=== PATIENT | female | born 1955 | race Caucasian/White ===

== ENCOUNTER 2018-10-12 11:22 | Emergency (ER) | payer OTHER ==
--- OUTSIDE RECORDS SUMMARY | 2018-10-12 11:23 | XMS REPORT ---
:1955 Author Organization [employer] Care Team Providers Name Role Phone Cummings, Na Provider Role Unavailable Allergies, Adverse Reactions, Alerts Substance Reaction Event Type codeine Info Not Available Drug Allergy Sulfa Info Not Available Drug Allergy Problems Problem Type Condition Code Onset Dates Condition Status Problem GERD (gastroesophageal reflux K21.9 Active disease) Problem Hyperlipidemia E78.5 Active Problem Vitamin D deficiency E55.9 Active Problem History of gastric bypass Z98.84 Active Problem Fatigue, unspecified type R53.83 Active Problem Postsurgical dumping syndrome K91.1 Active Problem Restless leg G25.81 Active Problem Lactose intolerance E73.9 Active Problem Cold intolerance R68.89 Active Problem 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 Active inadequate dietary iron intake Assessment Fatigue, unspecified type R53.83 Active Assessment Postsurgical dumping syndrome K91.1 Active Assessment Cold intolerance R68.89 Active Assessment 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 Active inadequate dietary iron intake Assessment Vitamin D deficiency E55.9 Active Problem Depression with anxiety F41.8 Active Assessment History of gastric bypass Z98.84 Active Problem Restless leg syndrome G25.81 Active Medications Medication Code Code Instructions Start End Status Dosage System Date Date Ferrous [facility] 98564066636 325 (65 Fe) MG Active 1 tablet Sulfate Orally three times a day Vitamin D3 [facility] 94365602158 - Orally Active not Complete defined Macrobid [facility] 04443221973 100 MG Orally November 09, Active 1 capsule every 12 hrs 2018 with food Requip [facility] 81330663611 1 MG Orally Once Active 1 tablet 1 a day to 3 hours before bedtime Ferrous ND 74043418464 325 (65 Fe) MG Active 1 tablet Sulfate Orally Once a day Results No Known Results Summary Purpose [employer] Submission
--- OUTSIDE RECORDS SUMMARY | 2018-10-12 11:23 | XMS REPORT ---
:1955 Author Organization [employer] Care Team Providers Name Role Phone Cummings, Na Provider Role Unavailable Allergies No Known Allergies Problems Problem Type Condition Code Onset Dates [...] D50.8 Active inadequate dietary iron intake Assessment Elevated LFTs R79.89 Active Problem Depression with anxiety F41.8 Active Problem Restless leg syndrome G25.81 Active Medications No Known Medications Results No Known Results Summary Purpose [employer] Submission
--- OUTSIDE RECORDS SUMMARY | 2018-10-12 11:23 | XMS REPORT ---
:1955 Author Organization [employer] Care Team Providers Name Role Phone Cummings, Na Provider Role Unavailable Allergies No Known Allergies Problems Problem Type Condition Code Onset Dates Condition Status Problem GERD (gastroesophageal reflux K21.9 Active disease) Problem Hyperlipidemia E78.5 Active Problem Vitamin D deficiency E55.9 Active Problem Depression with anxiety F41.8 Active Problem Restless leg syndrome G25.81 Active Problem History of gastric bypass Z98.84 Active Problem Fatigue, unspecified type R53.83 Active Problem Postsurgical dumping syndrome K91.1 Active Problem Restless leg G25.81 Active Problem Lactose intolerance E73.9 Active Problem Cold intolerance R68.89 Active Problem 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 Active inadequate dietary iron intake Medications Medication Code System Code Instructions Start Date End Date Status Dosage Zoloft [facility] [id number] 50 MG Orally Once February 28, Active 1 tablet a day 2018 Results No Known Results Summary Purpose [email or web address] Submission
[2018-10-12] MEDS ORDERED: HYDROCODONE/APAP 10/325 TAB ONE (13:12)
--- NOTE | 2018-10-12 13:46 | RAD REPORT ---
EXAM DESCRIPTION: RAD - Shoulder Left 2 View - 10/12/2018 1:35 pm CLINICAL HISTORY: PAIN Fall, shoulder pain COMPARISON: None FINDINGS: Left shoulder and left humerus- multiple projections are submitted. Mildly impacted proximal left humerus fracture is seen. No dislocation is evident.
--- NOTE | 2018-10-12 15:08 | RAD REPORT ---
EXAM DESCRIPTION: RAD - Humerus Left - 10/12/2018 1:34 pm CLINICAL HISTORY: PAIN Fall, shoulder pain COMPARISON: None FINDINGS: Left shoulder and left humerus- multiple projections are submitted. Mildly impacted proximal left humerus fracture is seen. No dislocation is evident.
--- NOTE | 2018-10-12 15:11 | EDPHYS ---
Physician Documentation [facility] Name: Daya Calderón Age: 63 yrs Sex: Female : 1955 Arrival Date: 10/12/2018 Time: 11:23 Bed 13 Private MD: ED Physician Esau Ingram HPI: 10/12 12:00 This 63 yrs old Female presents to ER via Ambulatory with complaints of Left pm1 Arm Injury. 12:00 The patient or guardian complains of pain, that is acute. The complaints affect the pm1 left bicep. Context: The problem was sustained at home, resulted from a fall, the patient slipped. Onset: The symptoms/episode began/occurred last night. Treatment prior to arrival includes: no previous treatment. Modifying factors: The symptoms are alleviated by remaining still, the symptoms are aggravated by movement. Associated signs and symptoms: Pertinent negatives: deformity, numbness, tingling. Severity of symptoms: in the emergency department the symptoms are unchanged. The patient has not experienced similar symptoms in the past. The patient has not recently seen a physician. No head injury, headache, neck pain, LOC. Historical: - Allergies: 11:38 Sulfa (Sulfonamide Antibiotics); sv - PSHx: 11:38 Gastric Bypass; Cholecystectomy; Breast augmentation; sv - Immunization history:: Adult Immunizations up to date. - Social history:: Smoking status: Patient/guardian denies using tobacco. - Ebola Screening: : No symptoms or risks identified at this time. ROS: 12:00 Constitutional: Negative for fever, chills, and weight loss, Eyes: Negative for injury, pm1 pain, redness, and discharge, ENT: Negative for injury, pain, and discharge, Neck: Negative for injury, pain, and swelling, Cardiovascular: Negative for chest pain, palpitations, and edema, Respiratory: Negative for shortness of breath, cough, wheezing, and pleuritic chest pain, Abdomen/GI: Negative for abdominal pain, nausea, vomiting, diarrhea, and constipation, Back: Negative for injury and pain, : Negative for injury, bleeding, discharge, and swelling. 12:00 Skin: Negative for injury, rash, and discoloration, Neuro: Negative for headache, weakness, numbness, tingling, and seizure. 12:00 MS/extremity: Positive for pain, of the left bicep and anterior aspect of left shoulder, Negative for deformity. Exam: 12:00 Constitutional: This is a well developed, well nourished patient who is awake, alert, pm1 and in no acute distress. Head/Face: Normocephalic, atraumatic. Eyes: Pupils equal round and reactive to light, extra-ocular motions intact. Lids and lashes normal. Conjunctiva and sclera are non-icteric and not injected. Cornea within normal limits. Periorbital areas with no swelling, redness, or edema. ENT: Nares patent. No nasal discharge, no septal abnormalities noted. Tympanic membranes are normal and external auditory canals are clear. Oropharynx with no redness, swelling, or masses, exudates, or evidence of obstruction, uvula midline. Mucous membranes moist. Neck: Trachea midline, no thyromegaly or masses palpated, and no cervical lymphadenopathy. Supple, full range of motion without nuchal rigidity, or vertebral point tenderness. No Meningismus. Chest/axilla: Normal chest wall appearance and motion. Nontender with no deformity. No lesions are appreciated. Cardiovascular: Regular rate and rhythm with a normal S1 and S2. No gallops, murmurs, or rubs. Normal PMI, no JVD. No pulse deficits. Respiratory: Lungs have equal breath sounds bilaterally, clear to auscultation and percussion. No rales, rhonchi or wheezes noted. No increased work of breathing, no retractions or nasal flaring. Abdomen/GI: Soft, non-tender, with normal bowel sounds. No distension or tympany. No guarding or rebound. No evidence of tenderness throughout. Back: No spinal tenderness. No costovertebral tenderness. Full range of motion. Skin: Warm, dry with normal turgor. Normal color with no rashes, no lesions, and no evidence of cellulitis. 12:00 Musculoskeletal/extremity: Extremities: grossly normal except: noted in the anterior aspect of left shoulder: tenderness, There is no evidence of deformity, Circulation is intact in all extremities. 12:00 Neuro: Orientation: is normal, Motor: is normal, moves all fours. Vital Signs: 11:38 BP 134 / 86; Pulse 75; Resp 20; Temp 97.1; Pulse Ox 99% ; Weight 71.21 kg; Height 5 ft. sv 2 in. (157.48 cm); Pain 5/10; 15:30 BP 128 / 78; Pulse 64; Resp 18; Temp 98.0; Pulse Ox 99% on R/A; Pain 3/10; ph 11:38 Body Mass Index 28.72 (71.21 kg, 157.48 cm) sv MDM: 12:34 Patient medically screened. pm1 15:06 Data reviewed: vital signs. Data interpreted: Pulse oximetry: on room air is 99 %. pm1 Interpretation: normal. Counseling: I had a detailed discussion with the patient and/or guardian regarding: the historical points, exam findings, and any diagnostic results supporting the discharge/admit diagnosis, radiology results, the need for outpatient follow up, for definitive care, a orthopedic surgeon, to return to the emergency department if symptoms worsen or persist or if there are any questions or concerns that arise at home. 10/12 11:44 Order name: Humerus Left XRAY; Complete Time: 15:17 sv 10/12 11:44 Order name: Shoulder Left (2 View) XRAY; Complete Time: 14:57 sv Administered Medications: 13:06 Drug: Scarbro 10 mg-325 mg 1 tabs Route: PO; ph 15:00 Follow up: Response: No adverse reaction ph Disposition: 10/12/18 15:10 Discharged to Home. Impression: Mildly impacted proximal left humerus fracture. - Condition is Stable. - Discharge Instructions: Humerus Fracture Treated With Immobilization, How to Use a Sling. - Prescriptions for Tylenol- Codeine #3 300-30 mg Oral Tablet - take 2 tablets by ORAL route every 6 hours As needed; 20 tablet. - Medication Reconciliation Form, Thank You Letter, Prescription Opioid Use form. - Follow up: Emergency Department; When: As needed; Reason: Worsening of condition. Follow up: Kevin Mercado MD; When: 2 - 3 days; Reason: Recheck today's complaints, Continuance of care, Re-evaluation by your physician. - Problem is new. - Symptoms have improved. Addendum: 10/15/2018 07:31 Co-signature as Attending Physician, Esau Ingram MD I agree with the assessment and k dr plan of care. PA/TRADE PROMOTION ANALYST's history reviewed, patient interviewed, and examined. Signatures: Dispatcher [employer] Daphne Fournier RN RN Esau Miranda MD MD [facility] Suzanne Ramos, RN RN ph Hoang Garcia, TRADE PROMOTION ANALYST TRADE PROMOTION ANALYST pm1 Corrections: (The following items were deleted from the chart) 10/12 15:18 15:10 10/12/2018 15:10 Discharged to Home. Impression: Impacted left humerus fracture. pm1 Condition is Stable. Forms are Medication Reconciliation Form, Thank You Letter, Antibiotic Education, Prescription Opioid Use. Follow up: Emergency Department; When: As needed; Reason: Worsening of condition. Follow up: Dr. Kevin Mercado; When: 2 - 3 days; Reason: Recheck today's complaints, Continuance of care, Re-evaluation by your physician. Problem is new. Symptoms have improved. pm1 15:34 15:18 10/12/2018 15:10 Discharged to Home. Impression: Mildly impacted proximal left ph humerus fracture. Condition is Stable. Discharge Instructions: Humerus Fracture Treated With Immobilization, How to Use a Sling. Prescriptions for Tylenol-Codeine #3 300-30 mg Oral Tablet - take 2 tablets by ORAL route every 6 hours As needed; 20 tablet. and Forms are Medication Reconciliation Form, Thank You Letter, Prescription Opioid Use. Follow up: Emergency Department; When: As needed; Reason: Worsening of condition. Follow up: Dr. Kevin Mercado; When: 2 - 3 days; Reason: Recheck today's complaints, Continuance of care, Re-evaluation by your physician. Problem is new. Symptoms have improved. pm1
--- NOTE | 2018-10-12 15:11 | ER ---
Nurse's Notes [facility] Name: Daya Calderón Age: 63 yrs Sex: Female : 1955 Arrival Date: 10/12/2018 Time: 11:23 Bed 13 Private MD: Diagnosis: Mildly impacted proximal left humerus fracture Presentation: 10/12 11:37 Presenting complaint: Patient states: RUE pain started last night after slipping in the sv bathroom and landing on her RUE onto the tile. Transition of care: patient was not received from another setting of care. Onset of symptoms was October 11, 2018. Care prior to arrival: None. 11:37 Method Of Arrival: Ambulatory 11:37 Acuity: RONI 3 sv 14:10 Risk Assessment: Do you want to hurt yourself or someone else? Patient reports no ph desire to harm self or others. Initial Sepsis Screen: Does the patient meet any 2 criteria? No. Patient's initial sepsis screen is negative. Does the patient have a suspected source of infection? No. Patient's initial sepsis screen is negative. Triage Assessment: 11:44 General: Appears in no apparent distress. uncomfortable, Behavior is calm, cooperative, sv appropriate for age. Pain: Complains of pain in left arm Pain currently is 5 out of 10 on a pain scale. Neuro: Level of Consciousness is awake, alert, obeys commands, Oriented to person, place, time, situation, Gait is steady, Speech is normal. Respiratory: Respiratory effort is even, unlabored, Respiratory pattern is regular, symmetrical. Musculoskeletal: Range of motion: limited in left elbow. Historical: - Allergies: 11:38 Sulfa (Sulfonamide Antibiotics); sv - PSHx: 11:38 Gastric Bypass; Cholecystectomy; Breast augmentation; sv - Immunization history:: Adult Immunizations up to date. - Social history:: Smoking status: Patient/guardian denies using tobacco. - Ebola Screening: : No symptoms or risks identified at this time. Screenin:08 Abuse screen: Denies threats or abuse. Denies injuries from another. Nutritional ph screening: No deficits noted. Tuberculosis screening: No symptoms or risk factors identified. Fall Risk Fall in past 12 months (25 points). No secondary diagnosis (0 pts). No IV (0 pts). Ambulatory Aid- None/Bed Rest/Nurse Assist (0 pts). Gait- Normal/Bed Rest/Wheelchair (0 pts) Mental Status- Oriented to own ability (0 pts). Total Navarrete Fall Scale indicates Low Risk Score (25-44 pts). Fall prevention measures have been instituted. Side Rails Up X 2 Family Present and informed to notify staff if they need to leave bedside As available Patient and Family Educated on Fall Prevention Program and strategies. Assessment: 13:00 General: Appears in no apparent distress. uncomfortable, well groomed, Behavior is ph calm, cooperative, appropriate for age. Pain: Complains of pain in anterior aspect of left shoulder and left bicep. Neuro: Level of Consciousness is awake, alert, obeys commands, Oriented to person, place, time, situation. Cardiovascular: Capillary refill < 3 seconds in bilateral fingers Patient's skin is warm and dry. Respiratory: Airway is patent Respiratory effort is even, unlabored, Respiratory pattern is regular, symmetrical, Denies shortness of breath pain with cough, pain with movement. GI: No signs and/or symptoms were reported involving the gastrointestinal system. Derm: Skin is intact, is healthy with good turgor, Skin is pink, warm \T\ dry. Musculoskeletal: Circulation, motion, and sensation intact. Range of motion: limited in left shoulder. 14:08 Reassessment: Patient appears in no apparent distress at this time. Patient and/or ph family updated on plan of care and expected duration. Pain level reassessed. Patient is alert, oriented x 3, equal unlabored respirations, skin warm/dry/pink. Pt resting quietly, awaiting radiology results, SO at bedside. Vital Signs: 11:38 BP 134 / 86; Pulse 75; Resp 20; Temp 97.1; Pulse Ox 99% ; Weight 71.21 kg; Height 5 ft. sv 2 in. (157.48 cm); Pain 5/10; 15:30 BP 128 / 78; Pulse 64; Resp 18; Temp 98.0; Pulse Ox 99% on R/A; Pain 3/10; ph 11:38 Body Mass Index 28.72 (71.21 kg, 157.48 cm) sv ED Course: 11:23 Patient arrived in ED. as 11:37 Triage completed. sv 11:44 Arm band placed on Patient placed in waiting room, Patient notified of wait time. left sv arm sling applied. 12:27 Hoang Garcia NP is PHCP. pm1 12:27 Esau Ingram MD is Attending Physician. pm1 12:30 Suzanne Ramos RN is Primary Nurse. ph 13:35 Humerus Left XRAY In Process Unspecified. EDMS 13:35 Shoulder Left (2 View) XRAY In Process Unspecified. EDMS 13:35 X-ray completed. Portable x-ray completed in exam room. Patient tolerated procedure jb2 well. 14:09 Patient has correct armband on for positive identification. Bed in low position. Call ph light in reach. Side rails up X 1. Door closed. Noise minimized. 14:09 No provider procedures requiring assistance completed. Patient did not have IV access ph during this emergency room visit. 15:07 Kevin Mercado MD is Referral Physician. pm1 Administered Medications: 13:06 Drug: Mehama 10 mg-325 mg 1 tabs Route: PO; ph 15:00 Follow up: Response: No adverse reaction ph Outcome: 15:10 Discharge ordered by . pm1 15:34 Patient left the ED. ph 15:34 Discharged to home ambulatory, with significant other. ph 15:34 Condition: good 15:34 Discharge instructions given to patient, Instructed on discharge instructions, follow up and referral plans. medication usage, Demonstrated understanding of instructions, follow-up care, medications, Prescriptions given X 1. Signatures: Dispatcher [employer] Daphne Fournier RN RN Ari Coats jb2 Caron Teixeira as Suzanne Ramos RN RN Hoang Garcia NP ADDICTION SPECIALIST pm1
== END 2018-10-12 15:34 | disposition home or self-care (01) ==
LOC: ER 11:22
DX: S42.202A Unspecified fracture of upper end of left humerus, initial encounter for closed fracture (principal); W01.0XXA Fall on same level from slipping, tripping and stumbling without subsequent striking against object, initial encounter; Y93.9 Activity, unspecified; Y92.002 Bathroom of unspecified non-institutional (private) residence as the place of occurrence of the external cause; Z88.2 Allergy status to sulfonamides
CPT/HCPCS: 99283

== ENCOUNTER → 2023-09-19 | Emergency (ER) | payer OTHER ==
[2023-09-19 10:23] LABS: Absolute Lymphocytes (CBC) 0.4 K/uL (0.7-4.9); Hematocrit 38.8 % (36.0-45.0); Lymphocytes % 8.1 % (15.3-44.8); MCV 85.7 fL (80-100); MPV 8.8 fL (7.6-11.3); Platelets 128 thou/uL (152-406); RBC Red Blood Cell Count 4.53 M/uL (3.86-4.86)
[2023-09-19 10:29] LABS: Specific Gravity 1.026 (1.005-1.030); Urine Bacteria <20 /HPF (<20); Urine Bilirubin NEGATIVE (Negative); Urine Blood 2+ (Negative); Urine Clarity Extremely Turbid (Clear); Urine Color Yellow (Yellow); Urine Glucose NEGATIVE (Negative); Urine Mucus Slight /HPF (None Seen); Urine Protein 3+ (Negative); Urine RBC >50 /HPF (None Seen); Urine Urobilinogen Normal (Normal)
[2023-09-19 10:41] LABS: Potassium 3.7 mEq/L (3.5-5.1)
--- NOTE | 2023-09-19 10:51 | EDPHYS ---
Physician Documentation [facility] Name: Daya Calderón Age: 68 yrs Sex: Female : 1955 Arrival Date: 09/19/2023 Time: 09:23 Bed 14 Private MD: ED Physician Segun James HPI: 09/19 10:14 This 68 yrs old Female presents to ER via Ambulatory with complaints of UTI. ms3 10:14 68-year-old female with no past medical history presents to the emergency department ms3 for 1 week of urinary frequency, dysuria and fever for 5 days. Patient states she is not in pain at this time. Patient has taken Tylenol for her fever; however, she has not taken Tylenol today. Patient endorses generalized weakness and intermittent back pain.. Historical: - Allergies: 09:31 Sulfa (Sulfonamide Antibiotics); ap3 - PMHx: 09:31 None; ap3 - Immunization history:: Client reports receiving the 2nd dose of the Covid vaccine, Flu vaccine is up to date. - Social history:: Smoking status: Patient denies any tobacco usage or history of. ROS: 10:14 Positive for urinary frequency, burning with urination, ms3 10:14 Cardiovascular: Negative for chest pain, and palpitations. Respiratory: Negative for shortness of breath, cough, wheezing, and pleuritic chest pain, Abdomen/GI: Negative for abdominal pain, nausea, vomiting, diarrhea, and constipation, MS/Extremity: Negative for injury and deformity, Skin: Negative for injury, rash, and discoloration, Exam: 10:14 Constitutional: This is a well developed, well nourished patient who is awake, alert, ms3 and in no acute distress. Neck: Trachea midline, no cervical lymphadenopathy. Supple, full range of motion without nuchal rigidity, or vertebral point tenderness. No Meningismus. Chest/axilla: Normal chest wall appearance and motion. Nontender with no deformity. Cardiovascular: Regular rate and rhythm with a normal S1 and S2. No gallops, murmurs, or rubs. Normal PMI, no JVD. No pulse deficits. Respiratory: Lungs have equal breath sounds bilaterally, clear to auscultation and percussion. No rales, rhonchi or wheezes noted. No increased work of breathing, no retractions or nasal flaring. Abdomen/GI: Soft, non-tender, with normal bowel sounds. No distension or tympany. No guarding or rebound. No evidence of tenderness throughout. Skin: Warm, dry with normal turgor. Normal color with no rashes, no lesions, and no evidence of cellulitis. MS/ Extremity: Pulses equal, no cyanosis. Neurovascular intact. Full, normal range of motion. Vital Signs: 09:30 BP 139 / 100; Pulse 92; Resp 18; Pulse Ox 97% on R/A; Weight 74.39 kg; Height 5 ft. 2 ap3 in. ; 10:58 BP 135 / 85; Pulse 76; Resp 18; Pulse Ox 100% on R/A; db 09:30 Body Mass Index 30.00 (74.39 kg, 157.48 cm) ap3 MDM: 10:14 Patient medically screened. ms3 10:14 Differential diagnosis: urinary tract infection, Pyelonephritis vs Back pain. ms3 10:51 Data reviewed: vital signs, nurses notes, lab test result(s), and as a result, I will ms3 discharge patient. Counseling: I had a detailed discussion with the patient and/or guardian regarding the historical points, exam findings, and any diagnostic results supporting the discharge/admit diagnosis, lab results, the need for outpatient follow up, to return to the emergency department if symptoms worsen or persist or if there are any questions or concerns that arise at home. Special discussion: I discussed with the patient/guardian in detail that at this point there is no indication for admission to the hospital. It is understood, however, that if the symptoms persist or worsen the patient needs to return immediately for re-evaluation. ED course: Discussed labs with patient. Patient to follow-up with primary care physician in 2 to 3 days. Patient understands and agrees with plan. All questions were answered. Return precautions discussed include worsening symptoms, or any other concerns. 09/19 10:03 Order name: CBC with Diff; Complete Time: 10:50 ms3 09/19 10:03 Order name: BMP; Complete Time: 10:50 ms3 09/19 10:03 Order name: Urinalysis w/ reflexes; Complete Time: 10:50 ms3 09/19 10:34 Order name: Urine Culture EDMS Administered Medications: No medications were administered Disposition Summary: 02/13/24 10:51 Discharge Ordered Notes: Location: Home ms3 Condition: Stable ms3 Diagnosis - UTI/ Urinary tract infection, site not specified ms3 Followup: ms3 - With: Private Physician - When: 2 - 3 days - Reason: Recheck today's complaints Discharge Instructions: - Discharge Summary Sheet ms3 - Urinary Tract Infection, Adult ms3 Forms: - Medication Reconciliation Form ms3 - Thank You Letter ms3 - Antibiotic Education ms3 - Prescription Opioid Use ms3 - Patient Portal Instructions ms3 - Leadership Thank You Letter ms3 Prescriptions: - Pyridium 200 mg Oral Tablet - take 1 tablet ORAL route every 8 hours for 3 days; 9 tablet; Refills: 0, ms3 Product Selection Permitted - cefpodoxime 100 mg Oral Tablet - take 1 tablet ORAL route every 12 hours for 10 days take with food; 20 tablet; ms3 Refills: 0, Product Selection Permitted Signatures: Dispatcher [employer] Andreia Prather RN RN ap3 Segun James DO DO ms3
--- NOTE | 2023-09-19 10:51 | ER ---
Nurse's Notes [facility] Name: Daya Calderón Age: 68 yrs Sex: Female : 1955 Arrival Date: 09/19/2023 Time: 09:23 Bed 14 Private MD: Diagnosis: UTI/ Urinary tract infection, site not specified Presentation: 09/19 09:30 Chief complaint: Patient states: she has been having UTI symptoms for "a couple of ap3 days". Patient reports urgency, frequency, fevers and chills. Coronavirus screen: At this time, the client does not indicate any symptoms associated with coronavirus-19. Ebola Screen: No symptoms or risks identified at this time. Initial Sepsis Screen: Does the patient meet any 2 criteria? HR > 90 bpm. Does the patient have a suspected source of infection?. Risk Assessment: Do you want to hurt yourself or someone else? Patient reports no desire to harm self or others. Onset of symptoms is unknown. 09:30 Method Of Arrival: Ambulatory ap3 09:30 Acuity: RONI 3 ap3 Triage Assessment: 09:32 General: Appears uncomfortable, Behavior is calm, cooperative, appropriate for age. ap3 Pain: Complains of pain in low back area and pelvis Pain began gradually, 2-3 days ago. Neuro: Level of Consciousness is awake, alert, obeys commands, Oriented to person, place, time, situation, Appropriate for age. Cardiovascular: Patient's skin is warm and dry. Respiratory: Airway is patent Respiratory effort is even, unlabored, Respiratory pattern is regular, symmetrical. : Reports pain urgency, urinary frequency. Historical: - Allergies: 09:31 Sulfa (Sulfonamide Antibiotics); ap3 - PMHx: 09:31 None; ap3 - Immunization history:: Client reports receiving the 2nd dose of the Covid vaccine, Flu vaccine is up to date. - Social history:: Smoking status: Patient denies any tobacco usage or history of. Screenin:32 [facility] ED Fall Risk Assessment (Adult) History of falling in the last 3 months, ap3 including since admission No falls in past 3 months (0 pts). Abuse screen: Denies threats or abuse. Nutritional screening: No deficits noted. Tuberculosis screening: No symptoms or risk factors identified. Assessment: 09:53 Reassessment: Patient appears in no apparent distress at this time. Patient and/or db family updated on plan of care and expected duration. Pain level reassessed. Patient is alert, oriented x 3, equal unlabored respirations, skin warm/dry/pink. General: Appears in no apparent distress. comfortable, Behavior is calm, cooperative, quiet. Neuro: Level of Consciousness is awake, alert, obeys commands, Oriented to person, place, time, situation. 11:08 Reassessment: Patient appears in no apparent distress at this time. Patient and/or db family updated on plan of care and expected duration. Pain level reassessed. Patient is alert, oriented x 3, equal unlabored respirations, skin warm/dry/pink. General: Appears in no apparent distress. comfortable, Behavior is calm, cooperative. 11:08 Reassessment:. db Vital Signs: 09:30 BP 139 / 100; Pulse 92; Resp 18; Pulse Ox 97% on R/A; Weight 74.39 kg; Height 5 ft. 2 ap3 in. ; 10:58 BP 135 / 85; Pulse 76; Resp 18; Pulse Ox 100% on R/A; db 09:30 Body Mass Index 30.00 (74.39 kg, 157.48 cm) ap3 ED Course: 09:28 Patient arrived in ED. mg5 09:30 Segun James DO is Attending Physician. ms3 09:31 Triage completed. ap3 09:33 Arm band placed on right wrist. ap3 09:44 Alexandrea Barber, RN is Primary Nurse. db 10:15 Inserted saline lock: 22 gauge in right antecubital area, using aseptic technique. db Blood collected. 11:08 Patient has correct armband on for positive identification. Bed in low position. Call db light in reach. Side rails up X 1. Provided Education on: DISCHARGE. Pulse ox on. NIBP on. Warm blanket given. 11:08 No provider procedures requiring assistance completed. IV discontinued, intact, db bleeding controlled, No redness/swelling at site. Administered Medications: No medications were administered Medication: 11:08 VIS not applicable for this client. db Outcome: 10:51 Discharge ordered by . ms3 11:08 Discharged to home ambulatory, with family, db 11:08 Condition: stable 11:08 Discharge instructions given to patient, Instructed on discharge instructions, follow up and referral plans. Prescriptions given X 2, 11:10 Patient left the ED. db Signatures: Andreia Muñoz, RN RN ap3 Segun James DO DO ms3 Alexandrea Barber RN RN db Dorys Jasso mg5
[2023-09-19 11:39] VITALS: BP 135/85; O2SAT 100
== END ==
LOC: ER 09:23
DX: N39.0 Urinary tract infection, site not specified (principal); Z88.2 Allergy status to sulfonamides
CPT/HCPCS: 36415; 80048; 81001; 85025; 87086; 87088